=== PATIENT | female | born 1945 | race Caucasian/White ===

== ENCOUNTER 2019-10-03 13:25 | Inpatient (IN) | payer MEDICARE, BC ==
[2019-10-03] MEDS ORDERED: fentaNYL* 50 MCG/ML 2 ML VIAL (100 MCG VIAL) IV SLOW PU ONE ×3 (13:40→14:23)
--- NOTE | 2019-10-03 13:42 | ED ---
Abdominal Pain/Female - HPI Summary HPI Summary: This pt is a 74 y/o female presenting to [facility] via EMS for sudden onset of severe abdominal pain since a couple of hours ago. Pt reports she also severe back pain. Pt notes she had vomiting. Denies fever, chest pain, diarrhea. Pt unable to sit still while obtaining history. Denies taking any anticoagulants. She takes medications for arthritis. PMHx: asthma, acid reflux, arthritis, dyslipidemia, over active bladder, afib. PSHx: appendectomy. FHx: breast CA. Denies tobacco, drug, and alcohol use. - History of Current Complaint Chief Complaint: EDAbdPain Stated Complaint: ABDOMINAL PAIN PER EMS Time Seen by Provider: 10/03/19 13:36 Hx Obtained From: Patient Onset/Duration: Lasting Hours, Still Present Timing: Constant Severity Currently: Severe Pain Intensity: 10 Pain Scale Used: 0-10 Numeric Location: Diffuse Radiates: No Aggravating Factor(s): Nothing Alleviating Factor(s): Nothing Associated Signs and Symptoms: Positive: Back Pain, Nausea, Vomiting. Negative : Fever, Chest Pain, Diarrhea Allergies/Adverse Reactions: Allergies Allergy/AdvReac Type Severity Reaction Status Date / Time MS Penicillins [Penicillins] Allergy Intermediate Itching Verified 07/07/13 10: 05 Home Medications: Home Medications Hydroxychloroquine TAB* [Plaquenil TAB*] 200 mg PO BID 10/03/19 [History Confirmed 10/03/19] Levothyroxine TAB* [Synthroid TAB*] 50 mcg PO DAILY 10/03/19 [History Confirmed 10/03/19] Lisinopril TAB* [Prinivil TAB*] 10 mg PO DAILY 10/03/19 [History Confirmed 10/03] Oxybutynin XL TAB* [Ditropan XL TAB*] 10 mg PO DAILY 10/03/19 [History Confirmed 10/03/19] Simvastatin TAB(NF) [Zocor(NF)] 10 mg PO BEDTIME 10/03/19 [History Confirmed ] predniSONE TAB* [Deltasone 1 MG TAB*] 5 mg PO DAILY 10/03/19 [History Confirmed 10/03/19] PMH/Surg Hx/FS Hx/Imm Hx Endocrine/Hematology History: Reports: Hx Thyroid Disease - ON MEDICATION Cardiovascular History: Reports: Hx Hypertension - ON MEDICATION Respiratory History: Reports: Hx Asthma - FROM ALLERGIES GI History: Reports: Hx Gastroesophageal Reflux Disease - ON MEDICATION Musculoskeletal History: Reports: Hx Arthritis - GENERALIZED Sensory History: Reports: Hx Cataracts - BILAT., Hx Contacts or Glasses - GLASSES Denies: Hx Hearing Aid Opthamlomology History: Reports: Hx Cataracts - BILAT., Hx Contacts or Glasses - GLASSES - Surgical History Surgery Procedure, Year, and Place: [facility] & A [facility]. 2 D & C- S- [facility] [place]. [id number]. BLADDER REPAIR-[facility] -1991. Hx Anesthesia Reactions: No Infectious Disease History: No Infectious Disease History: Denies: Traveled Outside the [place] in Last 30 Days - Social History Substance Use Type: Reports: None Review of Systems Negative: Fever Negative: Chest Pain Positive: Abdominal Pain, Vomiting, Nausea. Negative: Diarrhea Musculoskeletal: Other - POSITIVE: back pain All Other Systems Reviewed And Are Negative: Yes Physical Exam - Summary Physical Exam Summary: Constitutional: Moderate distress secondary to pain. Skin: Warm, Dry HENT: Normocephalic; Atraumatic Eyes: Conjunctiva normal Neck: Musculoskeletal ROM normal neck. (-) JVD, (-) Stridor, (-) Nuchal rigidity Cardio: Rhythm regular, rate normal, Heart sounds normal; Intact distal pulses; Radial pulses are 2+ and symmetric. (-) Murmur Pulmonary/Chest wall: Effort normal. (-) Respiratory distress, (-) Wheezes, (-) Rales Abd: Diffuse abd tenderness with guarding, (-) Distension, (-) Rebound Musculoskeletal: (-) Edema. 2 DP+ pulses bilaterally. Lymph: (-) Cervical adenopathy Neuro: Alert, Oriented x3 Psych: Mood and affect Normal Triage Information Reviewed: Yes Vital Signs On Initial Exam: Initial Vitals Temp Pulse Resp BP Pulse Ox 97.3 F 75 19 154/92 100 10/03/19 13:25 10/03/19 13:25 10/03/19 13:25 10/03/19 13:25 10/03/19 13:25 Vital Signs Reviewed: Yes Procedures - Sedation Patient Received Moderate/Deep Sedation with Procedure: No Diagnostics - Vital Signs Vital Signs Temp Pulse Resp BP Pulse Ox 10/03/19 13:25 97.3 F 75 19 154/92 100 - Laboratory Result Diagrams: 10/03/19 13:48 10/03/19 13:48 Lab Statement: Any lab studies that have been ordered have been reviewed, and results considered in the medical decision making process. - CT Chest/Abdomen/Pelvis CTA CT Interpretation Completed By: Radiologist Summary of CT Findings: IMPRESSION: Segments of small bowel are noted in the pelvis which are dilated with mesenteric edema suggestive of a closed loop obstruction. There is prominent pancreatic head with atrophy of the pancreas body and tail. Underlying pancreatic mass is not totally excluded and correlation with ultrasound and MRI should be performed. No evidence of aneurysmal dilatation. No aortic dissection is noted. Dr. Henderson has reviewed this report. - EKG 14:00 Cardiac Rate: NL - at 68 bpm EKG Rhythm: Sinus Rhythm Ectopy: PACs Summary of EKG Findings: EKG at 14:00 shows sinus rhythm at a rate of 68 bpm. PACs. Re-Evaluation - Re-Evaluation First Eval Re-Evaluation Time: 15:10 Comment: d/w concern for mesenteric ischemia. Given additional pain medications. Dr. Oates aware and will come see patient Abdominal Pain Fem Course/Dx - Course Course Of Treatment: 74 y/o F p/w acute severe abdominal pain. - on arrival to ED, patient with guarding diffusely CT abdomen. Feels nauseous. Given 50 of fentanyl and Zofran. Given IV fluids. Plan for CTA of the abdomen to assess for dissection versus mesenteric ischemia. Differential also includes bowel obstruction, renal stone, cardiac cause. EKG without evidence of STEMI, troponin normal. Check CBC to assess early infection, CMP given vomiting, lactic acid for mesenteric ischemia. - Diagnoses Provider Diagnoses: Mesenteric ischemia - Provider Notifications Discussed Care Of Patient With: Alethea Carvalho Time Discussed With Above Provider: 14:57 Instructed by Provider To: Other - Dr. Pearl, radiologist, reports pt has a closed loop bowel obstruction. [14:58] Discussed with Dr. Oates, surgeon, who states he will come down to see patient. - Critical Care Time Critical Care Time: 30-74 min - Upon my evaluation, this patient had a high probability of imminent or life-threatening deterioration due to mesenteric ischemia which required my direct attention, intervention, and personal management. I have personally provided 30 minutes of critical care time exclusive of time spent on separately billable procedures. Time includes review of laboratory data, radiology results, discussion with consultants, and monitoring for potential decompensation. Interventions were performed as documented above. Discharge ED - Sign-Out/Discharge Documenting (check all that apply): Patient Departure - Admit to [facility] [place] - Discharge Plan Condition: Stable Disposition: ADMITTED TO [facility] Referrals: Dallas Schofield MD [Primary Care Provider] - - Billing Disposition and Condition Condition: STABLE Disposition: Admitted to [facility] - Attestation Statements Document Initiated by Ricardoibe: Yes Documenting Scribe: Kristal Saul Provider For Whom Indu is Documenting (Include Credential): Vinicius Henderson MD Scribe Attestation: Kristal Patel, scribed for Vinicius Henderson MD on 10/03/19 at 1549. Scribe Documentation Reviewed: Yes Provider Attestation: The documentation as recorded by the scribeKristal accurately reflects the service I personally performed and the decisions made by , Vinicius Henderson MD Status of Scribe Document: Viewed
--- OUTSIDE RECORDS SUMMARY | 2019-10-03 13:47 | XMS REPORT | Continuity of Care Document ---
:1945 External Reference #:[id number] Author Name Cam Azevedo M.D. Address [address] [place] [address] Care Team Providers Name Role Phone MD Tayo, Andrew Talbot Care Team Information Toddler Caregiver [phone] Problems Active Problems Provider Date Essential hypertension Onset: 04/14/2014 Presence of intraocular lens Jay Small O.D. Onset: 09/07/2015 Taking medication Jay Small O.D. Onset: 09/07/2015 Lens Replaced By Other Means Jay Small O.D. Onset: 09/22/2014 Presbyopia Jay Small O.D. Onset: 09/22/2014 Tear film insufficiency Jay Small O.D. Onset: 09/22/2014 Vitreous degeneration Jay Small O.D. Onset: 04/15/2014 Social History Type Date Description Comments Sex Unknown ETOH Use Rarely consumes alcohol Tobacco Use Start: Unknown End: Unknown Patient is a former smoker Smoking Status Reviewed: 08/14/19 Patient is a former smoker Allergies, Adverse Reactions, Alerts Active Allergies Reaction Severity Comments Date Mold 04/15/2014 Seasonal 04/15/2014 Penicillin 04/15/2014 Medications Active Medications SIG Qnty Indications Ordering Provider Date Levothyroxine Sodium Unknown 25mcg Tablets Oxybutynin Chloride ER MD Cr Reilly W. 10mg Tablets ER 24HR Simvastatin Unknown 10mg Tablets Hydroxychloroquine Sulfate Unknown 200mg Tablets Immunizations Description No Information Available Vital Signs Date Vital Result Comment 08/14/2019 1:48pm Intraocular Pressure Right Eye 12 mmHg Intraocular Pressure Left Eye 11 mmHg 08/05/2018 10:27am Intraocular Pressure Right Eye 12 mmHg Intraocular Pressure Left Eye 12 mmHg Results Description No Information Available Procedures Date Code Description Status 08/14/2019 08051 Fundus Photography W/Interpretation & Report Completed 08/14/2019 34510 Ophthalmoscopy Subsequent Completed 08/14/2019 03124 Refraction Completed 08/14/2019 55350 Eye Exam Est Comprehensive Completed Medical Devices Description No Information Available Encounters Description No Information Available Assessments Date Code Description Provider 08/14/2019 Z79.899 Other predatory animal exterminator (current) drug therapy Cam Azevedo M.D. 08/14/2019 H43.813 Vitreous degeneration, bilateral Cam Azevedo M.D. 08/14/2019 Z96.1 Presence of intraocular lens Cam Azevedo M.D. 08/14/2019 H52.4 Presbyopia Cam Azevedo M.D. Plan of Treatment 08/14/2019 - Cam Azevedo M.D.Z79.899 Other prison (current) drug therapyFollow up:[facility], oct mac 6 mosH43.813 Vitreous degeneration, kajaazycvG92.1 Presence of intraocular lensH52.4 Presbyopia Functional Status Description No Information Available Mental Status Description No Information Available Referrals Description No Information Available
[2019-10-03 13:57] LABS: ABS Lymphocytes 0.8 10^3/ul (1.0-4.8); ABS Monocytes 0.2 10^3/ul (0-0.8); ABS Neutrophils 9.3 10^3/ul (1.5-7.7); Eosinophil % 0.1 %; Hematocrit 41 % (35-47); Hemoglobin 14.3 g/dL (12.0-16.0); Lymphocyte % 7.3 %; Mean Corpuscular HGB Conc 35 g/dL (31-36); Mean Corpuscular Hemoglobin 32 pg (27-31); Mean Corpuscular Volume 91 fL (80-97); Mean Platelet Volume 8.7 fL (7.4-10.4); Platelet Count 224 10^3/uL (150-450); Red Blood Count 4.53 10^6 /uL (3.70-4.87); Red Cell Distribution Width 13 % (10-15); White Blood Count 10.3 10^3/uL (3.5-10.8)
[2019-10-03] MEDS ORDERED: NS 0.9% 1000 ML** 1,000 ML IV ONE (14:04)
[2019-10-03] MEDS ORDERED: Ondansetron INJ* 2 MG/ML VIAL IV ONE (14:08)
[2019-10-03] MEDS ORDERED: Ondansetron INJ* 2 MG/ML VIAL ONE (14:09)
[2019-10-03 14:17] LABS: Albumin 3.9 g/dL (3.2-5.2); Albumin/Globulin Ratio 1.3 (1-3); BUN/Creatinine Ratio 17.8 (8-20); Calcium 9.3 mg/dL (8.6-10.3); EGFR African American 40.3 (>60); EGFR Non-African American 33.3 (>60); Globulin 2.9 g/dL (2-4); Potassium 4.6 mmol/L (3.5-5.0); Total Bilirubin 0.5 mg/dL (0.2-1.0); Total Protein 6.8 g/dL (6.4-8.9)
[2019-10-03 14:18] LABS: Troponin I 0.01 ng/mL (<0.04)
[2019-10-03] MEDS ORDERED: fentaNYL* 50 MCG/ML 2 ML VIAL (100 MCG VIAL) ONE ×3 (14:25→16:38)
[2019-10-03] MEDS ORDERED: Iodixanol* (CONTRAST) 320 MG/ML 100 ML SDV IV ONE (14:28)
[2019-10-03] MEDS ORDERED: Morphine 4 MG/ML VIAL (1 ml) 4 MG/ML VIAL IV ONE (14:52)
[2019-10-03] MEDS ORDERED: HYDROmorphone INJ1* 1 MG/ML SYRINGE IV SLOW PU ONE (15:21)
[2019-10-03] MEDS ORDERED: Clindamycin 900 MG/D5W BAG(*) 900 MG/50 ML BAG IVPB ONE (15:41)
[2019-10-03] MEDS ORDERED: Bupivacaine 0.25% SDV PF* 10 ML VIAL INJ ONE (15:44)
[2019-10-03] MEDS ORDERED: Famotidine IV* 10 MG/ML 2 ML (20 mg) ONE (15:53)
[2019-10-03] MEDS ORDERED: Midazolam* 1 MG/ML 2 ML VIAL (2 MG) ONE (16:03)
[2019-10-03] MEDS ORDERED: Dexamethasone IV* 4 MG/ML 1 ML (4 MG) ONE (16:05)
[2019-10-03] MEDS ORDERED: Propofol* 10 MG/ML 20 ML BTL ONE (16:05)
[2019-10-03] MEDS ORDERED: Succinylcholine* 20 MG/ML 10 ML VIAL ONE (16:05)
[2019-10-03] MEDS ORDERED: Cisatracurium* 2 MG/ML MDV 5 ML ONE (16:05)
[2019-10-03] MEDS ORDERED: Hetastarch 6% in NS* 500 ML IV ONE (16:12)
[2019-10-03] MEDS ORDERED: Naloxone* 0.4 MG/ML 1 ML VIAL IV PRN (17:18)
[2019-10-03] MEDS ORDERED: DiMENhydriNATE IV* 50 MG/ML VIAL IV PUSH PRN (17:18)
[2019-10-03] MEDS ORDERED: fentaNYL* 50 MCG/ML 2 ML VIAL (100 MCG VIAL) IV PRN (17:18)
[2019-10-03] MEDS ORDERED: Acetaminophen IV 1GM/100ML * 1,000 MG/100 ML VIAL IVPB ONE (17:18)
[2019-10-03] MEDS ORDERED: diPHENhydraMINE IV* 50 MG/ML 1 ml VIAL (BENADRYL) IV PRN (17:18)
--- NOTE | 2019-10-03 17:38 | OP ---
Operative Report - Blank - Operative Report Date of Operation: 10/03/19 Note: OPERATIVE REPORT Pre-op: Abdominal pain Post-Op: Same, small bowel ischemia secondary to internal hernia due to adhesion Procedure:Exploratory laparotomy, lysis of adhesion Surgeon: MD Lashon Asst: ANH Arroyo Anes: general with local , Dr. Devi IVF: 1 liter of crystalloid, 500 cc hespan EBL:50 cc's Urine: 500 cc's Specimen: none Drain: none Wound: one Findings: Internal hernia causing small bowel internal hernia with ischemia. Bowel viable after reduction and resection not performed. To PACU
[2019-10-03] MEDS ORDERED: Acetaminophen TAB* 325 MG PO PRN (17:39)
[2019-10-03] MEDS ORDERED: Ondansetron INJ* 2 MG/ML VIAL IV PRN (17:39)
[2019-10-03] MEDS ORDERED: HYDROmorphone INJ1* 1 MG/ML SYRINGE IV SLOW PU PRN (17:39)
--- NOTE | 2019-10-03 17:58 | HP ---
CC: [facility]; Dr. Dallas Schofield ADMISSION HISTORY AND PHYSICAL: DATE OF ADMISSION: 10/03/19 CHIEF COMPLAINT: Severe abdominal pain. HISTORY OF PRESENT ILLNESS: Ms. Alesha Benoit is a 74-year-old woman with a history of hypertension , hypothyroidism, arthritis, gastroesophageal reflux disease, who at 10 o'clock this morning develope d some severe abdominal distention and severe pain associated with nausea and vomiting. She had no a ssociated diarrhea and has not had a bowel movement or passed flatus. Pain progressively worsened an d she presented to the emergency room several hours ago. She was noted to be afebrile with stable vi grady signs and without tachycardia; however, she was writhing in pain with severe generalized abdomina l pain radiating through to her back and required large amounts of IV narcotic with only minimal impr ovement in her discomfort. She underwent a CT scan of her chest, abdomen, and pelvis here in the emergency room. This showed no abnormality in the chest. Significant findings in the abdomen showed a dilated loop of small bowel within the pelvis with mesen teric edema noted with apparent closed loop obstruction. There was no evidence of free fluid or extr aluminal air and the colon was filled with stool. Surgical consultation was obtained. PAST MEDICAL HISTORY: 1. Hypertension. 2. Hypothyroidism. 3. Arthritis. 4. Gastroesophageal reflux disease. 5. Hypercholesterolemia. PAST SURGICAL HISTORY: 1. Open hysterectomy. 2. Tubal ligation. ALLERGIES: To PENICILLIN, which causes itching and swelling of the face. SOCIAL HISTORY: She is . She lives with her . She is not a smoker. She drinks alcoho l on a rare social basis. Her is her healthcare proxy. REVIEW OF SYSTEMS: Very difficult to obtain due to her discomfort, but she gives no history of chest pain or cardiac disease, but does have hypertension. Pulmonary: She has some wheezing at times. : No urgency or hematuria. GI: She gives a history of some bowel movements over the past several ye ars. She has had a colonoscopy and an upper endoscopy in the past year. She takes medicine for refl ux disease. PHYSICAL EXAMINATION GENERAL: She is an elderly female, appears to be quite uncomfortable, writhing in pain, but is awake , alert, and oriented x3. VITAL SIGNS: She is afebrile, pulse 75, blood pressure 150/90. HEENT: Her oral mucosa was slightly dry. LUNGS: Clear to auscultation with normal respiratory effort. HEART: Regular rate and rhythm without murmurs, rubs, or gallops. ABDOMEN: Her abdomen is slightly firm, but nondistended. She has markedly diminished bowel sounds t hroughout. She has a well-healed low transverse incision as well as a small vertical incision below the umbilicus. She has tenderness throughout, but no peritoneal irritation; however, she does have g uarding with some rigidity throughout the entire abdomen. EXTREMITIES: Show no cyanosis or edema. IMPRESSION: Sudden onset of severe abdominal pain with pain out of proportion to physical examinati on. CT scan shows what appears to be a closed loop obstruction with mesenteric edema. Clinically, s he has small bowel ischemia secondary most likely to an intraabdominal adhesion, which suddenly start ed this morning. My concern is for progressive ischemia now over the last 4 to 5 hours. Although she remains without tachycardia or fever and has a normal lactic acid, I recommended to her and her that we proce ed to the operating room immediately for exploratory laparotomy for appropriate management. We discussed exploratory laparotomy with possible bowel resection and possible ostomy depending on fi ndings. Bowel resection may or may not be indicated. PLAN: 1. The patient will be admitted to the surgical service. 2. She will be kept n.p.o. and given preoperative antibiotics. 3. She is being given increased analgesia as well as IV fluids. 4. Exploratory laparotomy today. The procedure was discussed with the patient and her and t he risks of, but not limited to bleeding, infection, intraabdominal abscess formation, possibility of bowel resection, possible ostomy, injury to peritoneal and retroperitoneal structures, the risks of anesthesia, blood clot, , and multiorgan failure were all explained. [id number]/[facility] #: [id number]
[2019-10-03] MEDS: Lactated Ringers 1000 ML Bag* 1,000 ML IV SCH (21:05)
--- NOTE | 2019-10-03 23:01 | OP ---
CC: [facility]; Dr. Dallas Schofield, [facility]. OPERATIVE REPORT: DATE OF OPERATION: 10/03/19 DATE OF : 43 SURGEON: Hammad Oates MD FOOD MANAGEMENT AIDE: ANH Mcgarry ANESTHESIOLOGIST: Dr. Devi. ANESTHESIA: General with local. PRE-OP DIAGNOSES: Abdominal pain, internal hernia. POST-OP DIAGNOSES: 1. Abdominal pain, internal hernia. 2. Ischemia, portion of proximal ileum. OPERATIVE PROCEDURE: Exploratory laparotomy with lysis of adhesions and reduction of the internal hernia secondary to adhesion. ESTIMATED BLOOD LOSS: 50 cc. IV FLUIDS: 1 L of crystalloid and 500 cc of Hespan. URINE OUTPUT: 500 cc. SPECIMENS: None. DRAINS: None. WOUND CLASSIFICATION: I. COMPLICATIONS: None. FINDINGS: There was a 1- to 1-1/2-foot long section of proximal to mid ileum that had herniated through a band between the transverse colon and the sigmoid colon causing a complete obstruction with ischemia of this portion of the intestine. After lysis of the adhesion, the bowel circulation improved. There was no evidence of transmural necrosis and no resection was performed. DESCRIPTION OF PROCEDURE: Written informed consent was obtained, the abdomen was marked with indelible ink and preoperative antibiotics were administered. The patient was taken to the operating room and placed in the supine position. Sequential compression devices and a warming blanket were applied. General anesthesia was administered. A Cm catheter was inserted. The abdomen was prepped and draped in the usual sterile fashion. Time-out verification was completed. A vertical incision was made above the pubis and carried up to the umbilicus and slightly above and carried down to the midline fascia. The peritoneal cavity was entered under direct vision. There were some adhesions from the omentum to the anterior abdominal wall, which were taken down sharply and even extended more superiorly. There was a moderate amount of serous nonodorous fluid in the abdomen. This was irrigated. The omentum was identified and retracted somewhat superiorly, but it was quite adherent to the left retroperitoneum. Also noted was a markedly distended ischemic-appearing bluish reddish section of approximately 1 to 1-1/2 feet of small bowel in a large loop that was edematous with its mesentery as well being edematous and bluish in color. I was able to identify the adhesive band between the omentum and the portion of the sigmoid colon. This was lysed to reduce the hernia and bring the small bowel up into view. I then ran the entire small bowel from the ligament to Treitz to the ileocecal valve. This all was unremarkable other than the 1 to 1-1/2-foot length that was identified. We irrigated the abdomen and watched the bowel for approximately 10 minutes. It pinked up nicely with resumption of circulation. It was peristalsing and was quite hyperemic and reddish/hemorrhagic in color with no evidence of transmural infarction or serosal injury. At this point, decision was made not to proceed with resection. The bowel was placed back in the abdominal cavity. All sponge, needle, and laparotomy pad counts were reported to me as correct. The midline incision was closed with interrupted #1 Vicryl suture. The skin was approximated with stapling device. Dry sterile dressings were applied. The patient tolerated the procedure well and was taken to the recovery room in stable condition. [id number]/[facility] #: [id number] [facility]
[2019-10-04] MEDS: Lactated Ringers 1000 ML Bag* 1,000 ML IV SCH ×3 (05:09→15:40)
[2019-10-04 06:15] LABS: Hematocrit 34 % (35-47); Hemoglobin 11.7 g/dL (12.0-16.0); Mean Corpuscular HGB Conc 34 g/dL (31-36); Mean Corpuscular Hemoglobin 31 pg (27-31); Mean Corpuscular Volume 91 fL (80-97); Mean Platelet Volume 9.1 fL (7.4-10.4); Platelet Count 160 10^3/uL (150-450); Red Blood Count 3.73 10^6 /uL (3.70-4.87); Red Cell Distribution Width 13 % (10-15); White Blood Count 13.5 10^3/uL (3.5-10.8)
[2019-10-04 06:38] LABS: BUN/Creatinine Ratio 18.8 (8-20); Calcium 7.7 mg/dL (8.6-10.3); EGFR African American 47.1 (>60); EGFR Non-African American 38.9 (>60); Potassium 4.6 mmol/L (3.5-5.0)
--- NOTE | 2019-10-04 10:37 | PN ---
Progress Note - Progress Note Date of Service: 10/04/19 SOAP: Subjective: Feels much better Pain well controlled No N/V, no flatus Objective: Temp Pulse Resp BP Pulse Ox 97.9 F 71 16 120/47 96 10/04/19 08:16 10/04/19 08:16 10/04/19 08:16 10/04/19 08:16 10/04/19 08:16 Intake & Output 10/02/19 10/03/19 10/04/19 10/05/19 06:59 06:59 06:59 06:59 Intake Total 980 Output Total 650 Balance 330 Weight 168 lb Intake: IV Fluids 980 LR 980 Oral 0 Output: Gamez 650 Other: Date of Last Bowel t-1 Movement PEX: Comfortable Lungs are clear Cor is RRR Abd is soft and slightly distended. Few bowel sounds, Dressing intact Ext without edema Laboratory Results - last 24 hr 10/03/19 10/03/19 10/03/19 13:48 13:48 13:48 WBC 10.3 RBC 4.53 Hgb 14.3 Hct 41 MCV 91 MCH 32 H MCHC 35 RDW 13 Plt Count 224 MPV 8.7 Neut % (Auto) 90.2 Lymph % (Auto) 7.3 Jenkins % (Auto) 2.2 Eos % (Auto) 0.1 Baso % (Auto) 0.2 Absolute Neuts (auto) 9.3 H Absolute Lymphs (auto) 0.8 L Absolute Monos (auto) 0.2 Absolute Eos (auto) 0.0 Absolute Basos (auto) 0.0 Absolute Nucleated RBC 0.0 Nucleated RBC % 0.0 Sodium 135 Potassium 4.6 Chloride 103 Carbon Dioxide 23 Anion Gap 9 BUN 27 H Creatinine 1.52 H Est GFR ( Amer) 40.3 Est GFR (Non-Af Amer) 33.3 BUN/Creatinine Ratio 17.8 Glucose 137 H Lactic Acid 1.3 Calcium 9.3 Total Bilirubin 0.50 AST 20 ALT 14 Alkaline Phosphatase 73 Troponin I 0.01 Total Protein 6.8 Albumin 3.9 Globulin 2.9 Albumin/Globulin Ratio 1.3 10/04/19 10/04/19 05:29 05:29 WBC 13.5 H RBC 3.73 Hgb 11.7 L Hct 34 L MCV 91 MCH 31 MCHC 34 RDW 13 Plt Count 160 MPV 9.1 Neut % (Auto) Lymph % (Auto) Jenkins % (Auto) Eos % (Auto) Baso % (Auto) Absolute Neuts (auto) Absolute Lymphs (auto) Absolute Monos (auto) Absolute Eos (auto) Absolute Basos (auto) Absolute Nucleated RBC Nucleated RBC % Sodium 136 Potassium 4.6 Chloride 110 Carbon Dioxide 22 Anion Gap 4 BUN 25 H Creatinine 1.33 H Est GFR ( Amer) 47.1 Est GFR (Non-Af Amer) 38.9 BUN/Creatinine Ratio 18.8 Glucose 102 H Lactic Acid Calcium 7.7 L Total Bilirubin AST ALT Alkaline Phosphatase Troponin I Total Protein Albumin Globulin Albumin/Globulin Ratio Assessment: POD# 1 s/p exlap for internal hernia/SBO/small bowel ischemia, no resection- doing well--no clinical indication of worsening ischemia. Afebrile, no tachycardia, good urine output. Ileus Plan: D/C gamez Sips po Increase activity PPI, heparin Follow exams Labs in AM Discussed with pat and .
[2019-10-04] MEDS: Acetaminophen TAB* 325 MG PO PRN ×3 (11:22→20:02)
[2019-10-04] MEDS: Famotidine IV* 10 MG/ML 2 ML (20 mg) IV SLOW PU SCH (11:24)
[2019-10-04 11:25] LABS: Activated Partial Thrombo Time 28.3 seconds (26.0-38.0); INR 1.3 (0.82-1.09)
[2019-10-04] MEDS: Heparin VIAL(*) 5000 UNITS/ML VIAL (FIVE THOUSAND) SUBCUT SCH (21:13)
[2019-10-05] MEDS: Acetaminophen TAB* 325 MG PO PRN ×6 (00:04→21:49)
[2019-10-05 05:42] LABS: ABS Lymphocytes 0.9 10^3/ul (1.0-4.8); ABS Monocytes 0.4 10^3/ul (0-0.8); ABS Neutrophils 6.1 10^3/ul (1.5-7.7); Eosinophil % 0.2 %; Hematocrit 33 % (35-47); Hemoglobin 11.4 g/dL (12.0-16.0); Lymphocyte % 11.5 %; Mean Corpuscular HGB Conc 35 g/dL (31-36); Mean Corpuscular Hemoglobin 32 pg (27-31); Mean Corpuscular Volume 92 fL (80-97); Mean Platelet Volume 8.9 fL (7.4-10.4); Platelet Count 129 10^3/uL (150-450); Red Blood Count 3.53 10^6 /uL (3.70-4.87); Red Cell Distribution Width 13 % (10-15); White Blood Count 7.4 10^3/uL (3.5-10.8)
[2019-10-05 05:57] LABS: BUN/Creatinine Ratio 22.5 (8-20); Calcium 7.9 mg/dL (8.6-10.3); EGFR African American 45.1 (>60); EGFR Non-African American 37.3 (>60); Potassium 4.4 mmol/L (3.5-5.0)
[2019-10-05] MEDS: Famotidine IV* 10 MG/ML 2 ML (20 mg) IV SLOW PU SCH (08:21)
[2019-10-05] MEDS: Heparin VIAL(*) 5000 UNITS/ML VIAL (FIVE THOUSAND) SUBCUT SCH ×2 (08:21→21:49)
[2019-10-05] MEDS: Lactated Ringers 1000 ML Bag* 1,000 ML IV SCH (10:12)
--- NOTE | 2019-10-05 11:31 | PN ---
Progress Note - Progress Note Date of Service: 10/05/19 SOAP: Subjective: Passing some flatus No N/V Minimal incisional pain Ambulating in halls Objective: Temp Pulse Resp BP Pulse Ox 97.8 F 78 19 117/51 98 10/05/19 07:14 10/05/19 07:14 10/05/19 07:14 10/05/19 07:14 10/05/19 07:14 Intake & Output 10/03/19 10/04/19 10/05/19 10/06/19 06:59 06:59 06:59 06:59 Intake Total 980 2080 1031 Output Total 650 700 Balance 330 1380 1031 Weight 168 lb Intake: IV Fluids 980 1960 1031 LR 876 177 6407 Oral 0 120 Output: Urine 700 Cm 650 Other: Estimated Void Small Date of Last Bowel t-1 Movement PEX: Comfortable in chair Lungs are clear Abd is soft and non-distended. Incision clean and dry. Few bowel sounds present Ext without edema Assessment: POD # 2 s/p exlap for internal hernia, small bowel ischemia Ileus resolving Plan: Start clear liquids Decreae IVF Increase activity If tolerates po, probable d/c home tomorrow
[2019-10-05] MEDS ORDERED: Trolamine Salicyl. 10% CREAM* 85 GM TUBE TOPICAL PRN (13:23)
[2019-10-06] MEDS: Acetaminophen TAB* 325 MG PO PRN ×2 (01:47→08:55)
[2019-10-06] MEDS: Lactated Ringers 1000 ML Bag* 1,000 ML IV SCH (01:50)
[2019-10-06 07:52] VITALS: BP 139/54
[2019-10-06] MEDS: Heparin VIAL(*) 5000 UNITS/ML VIAL (FIVE THOUSAND) SUBCUT SCH (08:56)
[2019-10-06] MEDS: Famotidine IV* 10 MG/ML 2 ML (20 mg) IV SLOW PU SCH (08:56)
--- NOTE | 2019-10-06 09:09 | PN ---
Progress Note - Progress Note Date of Service: 10/06/19 SOAP: Subjective: Doing well Tolerating liquids and passing flatus, no N/V Ambulating in halls Want to go home Objective: Temp Pulse Resp BP Pulse Ox 98.2 F 58 16 139/54 96 10/06/19 07:51 10/06/19 07:51 10/06/19 07:51 10/06/19 07:51 10/06/19 07:51 Intake & Output 10/04/19 10/05/19 10/06/19 10/07/19 06:59 06:59 06:59 06:59 Intake Total 980 2080 4335 Output Total 780 217 9373 Balance 330 1380 2085 Weight 168 lb Intake: IV Fluids 980 1960 1930 LR 957 960 2318 Oral 0 120 2405 Output: Urine 700 2250 Cm 650 Other: Estimated Void Small Medium Date of Last Bowel t-1 Movement PEX: Comfortable Lungs are clear Abd is soft and slightly distended. Bowel sounds are present, not high pitched or tinkling Appropriate incisional tenderness, incision CDI Ext without edema Assessment: POD# 3 s/p exlap SBO internal hernia Ileus resolved Plan: D/C home Resume all pre-hospital meds Follow up in office early next week for staple removal and care Post-op instructions reviewed with patient and this morning at bedside.
== END 2019-10-06 11:35 | disposition home or self-care (01) | DRG 336 ==
LOC: ED 13:25 → SSU 17:39 → OBSVTOIN 10-04 15:36
PROVIDERS: ADMIT Surgery; ATTEND Surgery
PROC: 0DNN0ZZ Release Sigmoid Colon, Open Approach (ICD-10-PCS; principal; 2019-10-03 16:00)
DX: K56.50 Intestinal adhesions [bands], unspecified as to partial versus complete obstruction (principal); K91.89 Other postprocedural complications and disorders of digestive system; K56.7 Ileus, unspecified; I10 Essential (primary) hypertension; E03.9 Hypothyroidism, unspecified; M19.90 Unspecified osteoarthritis, unspecified site; K21.9 Gastro-esophageal reflux disease without esophagitis; E78.00 Pure hypercholesterolemia, unspecified; Z88.0 Allergy status to penicillin; Z79.52 Long term (current) use of systemic steroids; Z79.899 Other long term (current) drug therapy
CPT/HCPCS: 36415; 71275; 74174; 80048; 80053; 83605; 84484; 85025; 85027; 85610; 85730; 93005; 96361; 96374; 96375; 96376; 99284; A9270-GY; J0330; J1100; J1170; J1644; J2250; J2270; J2405; J2704; J3010; J3490; Q9967